=== PATIENT | male | born 1975 ===

== ENCOUNTER 2017-08-04 11:55 | Emergency (ER) | payer OTHER ==
[2017-08-04 12:20] VITALS: O2SAT 99; BMI 27.3
--- NOTE | 2017-08-04 14:07 | RAD ---
HISTORY: SOB COMPARISON: 10/19/2014 TECHNIQUE: Chest PA and lateral FINDINGS: LUNGS: No active pulmonary disease. PLEURA: No significant pleural effusion identified. No pneumothorax apparent. CARDIOVASCULAR: Normal. OSSEOUS STRUCTURES: No significant abnormalities. VISUALIZED UPPER ABDOMEN: Normal. OTHER FINDINGS: None. IMPRESSION: No active disease.
--- NOTE | 2017-08-04 14:08 | C.PDOC ---
History Of Present Illness 41 y/o male with Hx of DM presents to ED with complaints of pain to upper back radiating to arm for many months but is worse now which prompted visit to ED. Patient reports pain is worse when taking deep breaths and raising arms. Patient has felt feverish at night and reports non productive cough. Patient denies trauma, sob, abdominal pain or any other complaints at this time. Time Seen by Provider: 08/04/17 13:47 Chief Complaint (Nursing): Cough, Cold, Congestion History Per: Patient History/Exam Limitations: no limitations Onset/Duration Of Symptoms: Days Current Symptoms Are (Timing): Still Present Past Medical History Reviewed: Historical Data, Nursing Documentation, Vital Signs Vital Signs: Last Vital Signs Temp 98.6 F 08/04/17 12:19 Pulse 92 H 08/04/17 12:19 Resp 18 08/04/17 12:19 BP 131/88 08/04/17 12:19 Pulse Ox 99 08/04/17 14:32 - Medical History PMH: Diabetes, HTN, Hypercholesterolemia Surgical History: No Surg Hx Family History: States: No Known Family Hx - Social History Hx Tobacco Use: No Hx Alcohol Use: Yes Hx Substance Use: No - Immunization History Hx Tetanus Toxoid Vaccination: No Hx Influenza Vaccination: Yes Hx Pneumococcal Vaccination: No Review Of Systems Constitutional: Negative for: Fever, Chills Cardiovascular: Negative for: Chest Pain Respiratory: Positive for: Cough. Negative for: Shortness of Breath Gastrointestinal: Negative for: Nausea, Vomiting Musculoskeletal: Positive for: Back Pain Skin: Negative for: Rash Physical Exam - Physical Exam Appears: Non-toxic, No Acute Distress Skin: Normal Color, Warm, Dry, No Rash Head: Atraumatic, Normacephalic Eye(s): bilateral: Normal Inspection Oral Mucosa: Moist Neck: Normal ROM, Supple Chest: Symmetrical Cardiovascular: Rhythm Regular, No Murmur Respiratory: Normal Breath Sounds, No Rales, No Rhonchi, No Wheezing Gastrointestinal/Abdominal: Soft, No Tenderness, No Guarding, No Rebound Back: No CVA Tenderness, No Paraspinal Tenderness, Other (Tenderness across upper back to trapezius muscle L>R) Extremity: Normal ROM, No Pedal Edema Neurological/Psych: Oriented x3 ED Course And Treatment - Laboratory Results Result Diagrams: 08/04/17 14:16 08/04/17 14:16 Lab Interpretation: Abnormal (Glucose 292, mild elevation of LFTs) O2 Sat by Pulse Oximetry: 99 (RA) Pulse Ox Interpretation: Normal - Radiology CXR: Viewed By Me, Read By Radiologist CXR Interpretation: Yes: No Acute Disease Reevaluation Time: 14:59 Reassessment Condition: Unchanged Medical Decision Making Medical Decision Making: Patient takes Glipizide and Metformin daily for diabetes. His blood sugar is slightly elevated today. Advised to continue his medication and restrict his diet appropriately. Disposition Counseled Patient/Family Regarding: Studies Performed, Diagnosis, Need For Followup, Rx Given - Disposition Referrals: [facility] [Outside] Disposition: HOME/ ROUTINE Disposition Time: 15:07 Condition: STABLE Prescriptions: Cyclobenzaprine [Flexeril] 10 mg PO TID PRN #20 tab PRN Reason: Muscle Spasm Instructions: Musculoskeletal Pain (ED) Forms: [email or web address] (Indonesian) Print Language: CITIZEN OF [place] - Clinical Impression Clinical Impression: Pain, upper back - Scribe Statement The provider has reviewed the documentation as recorded by the Kanu Chung All medical record entries made by the Chaibmauro were at my direction and personally dictated by me. I have reviewed the chart and agree that the record accurately reflects my personal performance of the history, physical exam, medical decision making, and the department course for this patient. I have also personally directed, reviewed, and agree with the discharge instructions and disposition.
[2017-08-04 14:20] LABS: BASO # 0.1 K/uL (0.0-0.2); BASO % 1.3 % (0.0-2.0); EOS # 1.4 K/uL (0.0-0.7); EOS % 13.4 % (0.0-4.0); LYMPH # 2.6 K/uL (1.0-4.3); LYMPH % 23.9 % (20.0-40.0); MEAN CELL VOLUME 105.8 fL (80.0-94.0); MEAN CORPUSCULAR HEMOGLOBIN 36.9 pg (27.0-31.0); MEAN CORPUSCULAR HGB CONC 34.9 g/dL (33.0-37.0); MEAN PLATELET VOLUME 8.7 fL (7.2-11.7); MONO # 0.7 K/uL (0.0-0.8); MONO % 6.5 % (0.0-10.0); RED CELL DISTRIBUTION WIDTH 12.9 % (11.5-14.5); WHITE BLOOD COUNT 10.7 K/uL (4.8-10.8)
[2017-08-04 14:40] LABS: CHLORIDE 97 mmol/L (98-107); POTASSIUM 3.8 mmol/L (3.6-5.2); SODIUM 137 mmol/L (132-148)
[2017-08-04 14:42] LABS: CARBON DIOXIDE 22 mmol/L (22-30); GFR AFRICAN-AMERICAN > 60
[2017-08-04 14:43] LABS: ALB/GLOB RATIO 1.7 (1.0-2.1); ALKALINE PHOSPHATASE 80 U/L (38-126); ALT/SGPT 120 U/L (21-72); AST/SGOT 98 U/L (17-59); BLOOD UREA NITROGEN 10 mg/dL (9-20); CALCIUM 9.7 mg/dl (8.6-10.4); GLUCOSE,RANDOM 292 mg/dL (75-110); TOTAL PROTEIN 7.7 g/dL (6.3-8.3)
[2017-08-04 15:16] VITALS: BP 137/82; PULSE 89; RESP 16; TEMP 98.8
== END 2017-08-04 15:15 | disposition home or self-care (01) ==
LOC: C.ER 11:55
DX: M54.89 Other dorsalgia (principal)

== ENCOUNTER 2019-04-11 18:41 | Emergency (ER) | payer OTHER ==
[2019-04-11 18:41] VITALS: BMI 27.3
[2019-04-11] MEDS ORDERED: Fluorescein 1 mg Ophthalmic Strip ONE (19:42)
[2019-04-11] MEDS ORDERED: Tetracaine 0.5% Ophth (OR ONLY) ONE (19:42)
--- NOTE | 2019-04-11 20:50 | C.PDOC ---
History Of Present Illness 43 year old male was fixing a window in a house when he felt something fly into his left eye. Patient is now complaining of foreign body sensation to the left eye. Denies pain, decreased vision, or photophobia. Time Seen by Provider: 04/11/19 19:36 Chief Complaint (Nursing): Foreign Body History Per: Patient History/Exam Limitations: no limitations Onset/Duration Of Symptoms: Hrs Current Symptoms Are (Timing): Still Present Injury To Eye?: No Wears Contact Lens?: No Associated Symptoms: FB Sensation. denies: Pain, Decreased Vision, Other (Photophobia) Recent travel outside of the [place]: No Past Medical History Reviewed: Historical Data, Nursing Documentation, Vital Signs Vital Signs: Last Vital Signs Temp 98.6 F 04/11/19 18:55 Pulse 84 04/11/19 18:55 Resp 18 04/11/19 18:55 BP 148/91 H 04/11/19 18:55 Pulse Ox 100 04/11/19 18:55 Primary Care Provider: Clinic[facility] - Medical History PMH: Diabetes, HTN, Hypercholesterolemia Family History: States: Unknown Family Hx - Social History Hx Tobacco Use: No Hx Alcohol Use: Yes Hx Substance Use: No - Immunization History Hx Tetanus Toxoid Vaccination: No Hx Influenza Vaccination: Yes Hx Pneumococcal Vaccination: No Review Of Systems Eyes: Positive for: Other (Foreign body sensation. No photophobia.). Negative for: Pain, Vision Change ENT: Negative for: Nose Discharge, Nose Congestion Physical Exam - Physical Exam Appears: Non-toxic Skin: Normal Color, Warm Head: Atraumatic, Normacephalic Eye(s): bilateral: PERRL, EOMI, right: Normal Inspection (Visual acuity 20/30), left: Other (Small whitish foreign body visualized with upper eyelid eversion. Mild conjunctival injection, greater to lateral aspect. No corneal foreign body. No abrasion with fluorescein stain test. Visual acuity 20/30.) Neurological/Psych: Oriented x3, Normal Speech ED Course And Treatment O2 Sat by Pulse Oximetry: 100 (Room air) Pulse Ox Interpretation: Normal Progress Note: Foreign body was swabbed out with cotton tip applicator, eye was irriated with saline, patient reports discomfort has resolved, will discharge home with instructions to follow up with PMD. 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 - Scribe Statement The provider has reviewed the documentation as recorded by the Scribmauro Self All medical record entries made by the Chaibmauro were at my direction and personally dictated by me. I have reviewed the chart and agree that the record accurately reflects my personal performance of the history, physical exam, medical decision making, and the department course for this patient. I have also personally directed, reviewed, and agree with the discharge instructions and disposition.
[2019-04-11 20:58] VITALS: BP 131/83; PULSE 65; RESP 16; TEMP 98.4
[2019-04-12 01:00] VITALS: O2SAT 100
== END 2019-04-11 20:57 | disposition home or self-care (01) ==
LOC: C.ER 18:41
DX: T15.82XA Foreign body in other and multiple parts of external eye, left eye, initial encounter (principal); X58.XXXA Exposure to other specified factors, initial encounter; Y93.E9 Activity, other interior property and clothing maintenance; E11.9 Type 2 diabetes mellitus without complications